=== PATIENT | female | born 1975 | race Caucasian/White ===

== ENCOUNTER 2017-08-11 08:14 | Emergency (ER) | payer OTHER ==
[~2017-08-11] VITALS: Ht 172.7 cm; Wt 136.1 kg
[2017-08-11 08:51] LABS: BASO # 0.1 10*3/uL (0.0-0.1); BASO % 0.5 % (0.0-1.0); EOS # 0.3 10*3/uL (0.0-0.4); EOS % 3.6 % (1.0-4.0); HEMATOCRIT 38.7 % (37.0-47.0); HEMOGLOBIN 13.1 g/dl (12.0-16.0); LYMPH % 21.4 % (27.0-41.0); MEAN CELL VOLUME 89.8 fl (81.0-99.0); MEAN CORPUSCULAR HGB 30.4 pg (27.0-31.0); MEAN CORPUSCULAR HGB CONC 33.9 g/dl (33.0-37.0); MONO # 0.6 10*3/uL (0.1-1.0); MONO % 6.5 % (3.0-9.0); NEUT # 6.3 10*3/uL (2.3-7.9); NEUT % 67.5 % (47.0-73.0); PLATELET COUNT AUTOMATED 232 10*3/uL (130-400); RED BLOOD COUNT 4.31 10*6/uL (4.10-5.10); RED CELL DISTRI WIDTH 12.3 % (0-14.5); WHITE BLOOD COUNT 9.3 10*3/uL (4.8-10.8)
[2017-08-11 09:10] LABS: ALKALINE PHOSPHATASE 73 U/L (45-117); BUN 10 mg/dl (7-24); CHLORIDE 110 mmol/L (98-107); CREATININE 1.09 mg/dL (0.55-1.02); SGOT/AST 8 IU/L (3-35); SGPT/ALT 19 U/L (12-78); SODIUM 143 mmol/L (136-145); TOTAL PROTEIN 7.7 gm/dL (6.4-8.2)
[2017-08-11 09:12] LABS: ACT PARTIAL THROMBO TIME 23.1 SECONDS (19.5-32.1); INTERNATIONAL NORM RATIO 0.9 (2.0-3.5)
[2017-08-11] MEDS ORDERED: PREPARATION H26 GM R (10:01)
[2017-08-11] MEDS ORDERED: MIRALAX POWDER17 G1 PO (10:01)
== END 2017-08-11 10:39 | disposition home or self-care (01) ==
LOC: ED 08:14
PROVIDERS: Emergency Medicine
DX: K64.4 Residual hemorrhoidal skin tags (principal); K59.00 Constipation, unspecified; K62.5 Hemorrhage of anus and rectum; Z98.890 Other specified postprocedural states; Z88.6 Allergy status to analgesic agent

== ENCOUNTER → 2017-10-18 | Outpatient (CLI) | payer OTHER ==
[~2017-10-18] MED LIST: MIRALAX POWDER17 G1 PO; PREPARATION H26 GM R
== END | disposition home or self-care (01) ==
LOC: US 09:07
DX: R10.11 Right upper quadrant pain (principal)

== ENCOUNTER → 2017-10-21 | Day surgery (SDC) | payer OTHER ==
[~2017-10-21] VITALS: Ht 170.1 cm; Wt 152.4 kg
--- NOTE | ~2017-10-21 | PROC NOTE ---
[place], [place] PROCEDURE NOTE NAME: BETTY CAMPBELL UNIT #: [id number] ROOM: DOCTOR: CHAVA BECERRA MD BIRTHDATE: [birth year] DOS: 10/21/2017 PREOPERATIVE DIAGNOSES: Heartburn, lower gastrointestinal bleed. POSTOPERATIVE DIAGNOSES: Internal/external hemorrhoids, esophagitis, hiatal hernia. PROCEDURE: EGD with colonoscopy. ENDOSCOPIST: Chava Becerra MD BALL SORTER: MOR. ANESTHESIA: MAC. INDICATIONS: This is a 42-year-old lady with a history of heartburn and lower GI bleed who is here for the above-mentioned procedure. The procedure and its complications were explained to the patient in detail preoperatively. Complications that were discussed included but were not limited to, bleeding, colon perforation, esophageal perforation, and missed lesions. She agreed to proceed. DESCRIPTION OF PROCEDURE: After identifying the patient, the patient was brought to the endoscopy suite and placed in left lateral position. After IV sedation was administered, a timeout procedure was called. It was decided to do the EGD first. Bite block was placed. An adult gastroscope was now advanced from the mouth into the pharynx, esophagus, stomach and first 2 parts of the duodenum. There was no obvious ulceration, no bleeding seen in the stomach or the duodenum. This was confirmed on retroflexing the scope and visualizing the entire stomach. On withdrawal of the scope, there was found to be mild esophagitis, a small sliding hiatal hernia that was visualized, but there was no active bleeding. The scope was withdrawn and attention was turned towards the colonoscopy. was found to be marked external hemorrhoids and rectal exam was done which was without any blood on the examining finger. An adult colonoscope was now introduced into the anal canal and advanced sequentially into the rectum, sigmoid colon, descending colon, transverse colon and ascending colon up to the cecum. The prep was found to be suboptimal in certain areas and the stool had to be sucked away. Upon reaching the cecum, the scope was withdrawn. Total withdrawal time was approximately 7 minutes. Entirety of the colon showed no evidence of any bleeding or polyps. There was no diverticulosis. There was found to be internal hemorrhoids upon retroflexion of the scope in the rectum, but no active bleeding. The scope was then withdrawn and the patient was brought back to the recovery room in a stable fashion. There were no complications. Dr. Chava Becerra, the attending endoscopist, was present throughout the operating case. [place], [place] PROCEDURE NOTE NAME: BETTY CAMPBELL UNIT #: [id number] ROOM: DOCTOR: CHAVA BECERRA MD BIRTHDATE: [birth year] Chava Becerra MD CM:PROCNOTE:PROCEDURE NOTE [id number] CHAVA BECERRA MD
[2017-10-21 10:55] VITALS: BP 114/64
[2017-10-21 12:53] VITALS: BP 129/69
[2017-10-21 13:05] VITALS: BP 140/76
[2017-10-21 13:19] VITALS: BP 130/61
== END | disposition home or self-care (01) ==
LOC: SDC 10-15 14:45
DX: K20.9 Esophagitis, unspecified (principal); K64.4 Residual hemorrhoidal skin tags; K44.9 Diaphragmatic hernia without obstruction or gangrene; E66.01 Morbid (severe) obesity due to excess calories; Z68.43 Body mass index [BMI] 50.0-59.9, adult; I10 Essential (primary) hypertension; Z98.51 Tubal ligation status; Z87.891 Personal history of nicotine dependence; Z80.9 Family history of malignant neoplasm, unspecified

== ENCOUNTER 2020-10-16 07:52 | Emergency (ER) | payer OTHER ==
[~2020-10-16] VITALS: Wt 141.5 kg
[2020-10-16 08:38] LABS: BASO # 0.1 10*3/uL (0.0-0.1); BASO % 0.6 % (0.0-1.0); EOS # 0.2 10*3/uL (0.0-0.4); EOS % 2.1 % (1.0-4.0); HEMATOCRIT 35.4 % (37.0-47.0); LYMPH # 1.7 10*3/uL (1.3-4.4); LYMPH % 21.4 % (27.0-41.0); MEAN CELL VOLUME 90.3 fl (81.0-99.0); MEAN CORPUSCULAR HGB 29.1 pg (27.0-31.0); MEAN CORPUSCULAR HGB CONC 32.2 g/dl (33.0-37.0); MEAN PLATELET VOLUME 9.1 fl (9.6-12.3); MONO # 0.5 10*3/uL (0.1-1.0); MONO % 6.7 % (3.0-9.0); NEUT # 5.4 10*3/uL (2.3-7.9); NEUT % 68.6 % (47.0-73.0); PLATELET COUNT AUTOMATED 297 10*3/uL (130-400); RED BLOOD COUNT 3.92 10*6/uL (4.10-5.10); RED CELL DISTRI WIDTH 12.3 % (0-14.5); WHITE BLOOD COUNT 7.9 10*3/uL (4.8-10.8)
[2020-10-16 08:53] LABS: BILIRUBIN Negative (Negative); BLOOD Negative (Negative); CLARITY Clear (Clear); COLOR Yellow (Yellow); GLUCOSE Negative (Negative); KETONE Negative (Negative); LEUKO ESTERASE Negative (Negative); NITRITE Negative (Negative); PH 7.5 (4.5-8.0); SPECIFIC GRAVITY 1.015 (1.001-1.030)
[2020-10-16 08:57] LABS: ALBUMIN 3.5 gm/dl (3.1-4.5); ALKALINE PHOSPHATASE 74 U/L (45-117); BUN 13 mg/dl (7-24); CHLORIDE 109 mmol/L (98-107); CREATININE 0.92 mg/dL (0.55-1.02); POTASSIUM 3.9 mmol/L (3.5-5.1); SGOT/AST 8 IU/L (3-35); SGPT/ALT 18 U/L (12-78); SODIUM 139 mmol/L (136-145); TOTAL PROTEIN 7.6 gm/dL (6.4-8.2)
[2020-10-16 08:59] LABS: B-hCG (QUALITATIVE) NEGATIVE (NEGATIVE)
[2020-10-16 09:16] LABS: WBC 0-2 wbc/hpf (0-5)
[2020-10-16 09:17] LABS: RBC 0-2 rbc/hpf (0-2)
[2020-10-16] MEDS ORDERED: CYCLOBENZAPRINE5 M3 PO (11:25)
== END 2020-10-16 11:45 | disposition home or self-care (01) ==
LOC: ED 07:52
PROVIDERS: Internal Medicine
DX: S39.012A Strain of muscle, fascia and tendon of lower back, initial encounter (principal); I10 Essential (primary) hypertension; Z79.899 Other long term (current) drug therapy; Z98.890 Other specified postprocedural states; X58.XXXA Exposure to other specified factors, initial encounter; Y93.89 Activity, other specified; Y92.89 Other specified places as the place of occurrence of the external cause; Y99.8 Other external cause status